=== PATIENT | male | born 1930 | race Caucasian/White ===

== ENCOUNTER 2017-07-08 20:41 | Inpatient (IN) | payer MEDICARE ==
[~2017-07-08] VITALS: Ht 172.7 cm; Wt 73.9 kg
--- NOTE | 2017-07-08 21:20 | Emergency Room Report ---
History of Present Illness General Chief Complaint: Syncope Source: Patient Present Illness HPI This is an 86-year-old male with a history of CAD of the pacemaker. Patient presents with chief complaint of syncope/near syncope. Family called 911 because he felt dizzy and was about to pass out. Patient denies any loss of consciousness. Patient said that this happened to him frequently. Said he been to [facility] multiple times for the same thing. Denies any chest pain. Better when he sitting down. Worse with standing up. No nausea no vomiting. He is a poor historian however. No family available at this moment in time to get history. patient said he takes 11 pills but does know the names. Allergies: Coded Allergies: No Known Allergies (Unverified , 07/08/17) Patient History Past Medical History: see triage record, old chart reviewed, CAD Past Surgical History: other Pertinent Family History: none Social History: Denies: smoking Immunizations: other Reviewed Nursing Documentation: PMH: Agreed, PSxH: Agreed Nursing Documentation-PMH Hx Cardiac Problems: Yes Hx Hypertension: No Hx Pacemaker: Yes Hx Asthma: No Hx Diabetes: No Hx Cancer: No Hx Dialysis: No History Of Psychiatric Problem: No Hx Neurological Problems: No Hx Cerebrovascular Accident: Yes Hx Seizures: No Review of Systems Constitutional: Reports: weakness Eye: Denies: eye pain, blurred vision ENT: Denies: ear pain, nose congestion, throat swelling Respiratory: Denies: cough, shortness of breath Cardiovascular: Denies: chest pain, palpitations Gastrointestinal: Denies: abdominal pain, diarrhea, nausea, vomiting Musculoskeletal: Denies: back pain, joint pain Skin: Denies: rash Neurological: Denies: headache, numbness Endocrine: Denies: increased thirst, increased urine Hematologic/Lymphatic: Denies: easy bruising All Other Systems: negative except mentioned in HPI Physical Exam Vital Signs Date Time Temp Pulse Resp B/P (MAP) Pulse Ox O2 Delivery O2 Flow Rate FiO2 07/08/17 20:44 98.1 78 16 91/53 89 Room Air vitals with hypotension and hypoxia Sp02 EP Interpretation: reviewed, normal General Appearance: Chronically Ill Head: normocephalic, atraumatic Eyes: bilateral eye PERRL, bilateral eye EOMI ENT: hearing grossly normal, normal pharynx Neck: full range of motion, supple, no meningismus Respiratory: chest non-tender, lungs clear, normal breath sounds Cardiovascular #1: regular rate, rhythm, no murmur Gastrointestinal: normal bowel sounds, non tender, no mass, no organomegaly, no bruit, non-distended Musculoskeletal: back normal, gait/station normal, normal range of motion Psychiatric: mood/affect normal Skin: warm/dry Medical Decision Making Diagnostic Impression: Primary Impression: Syncope Qualified Codes: R55 - Syncope and collapse Additional Impressions: Anemia Qualified Codes: D64.9 - Anemia, unspecified ARF (acute renal failure) Qualified Codes: N17.9 - Acute kidney failure, unspecified Hypotension Qualified Codes: I95.9 - Hypotension, unspecified ER Course This patient presents with weakness and hypotension. He has a syncope/near syncope. He said that he has been to [facility] multiple time. Unable to get records from them at this moment. He decreased on with IV fluid. His BNP is elevated a chest x-ray is clear. No evidence of fluid overloaded on clinical exam. Will admit for further workup. No evidence of infection. Lab Results Impression last with elevated bun/creat and low hemoglobin EKG Diagnostic Results Rate: normal Rhythm: NSR ST Segments: other - paced Rhythm Strip Diag. Results Rhythm Strip Time: 21:20 EP Interpretation: yes Rate: 70 Rhythm: NSR, no PVC's, no ectopy Chest X-Ray Diagnostic Results Chest X-Ray Diagnostic Results : Chest X-Ray Ordered: Yes # of Views/Limited/Complete: 1 View Indication: Shortness of Breath EP Interpretation: Yes Interpretation: no consolidation, no effusion, no pneumothorax, other - Cardiomegaly Impression: Other - CM, Electronically Signed by: Allan Darling MD Last Vital Signs Date Time Temp Pulse Resp B/P (MAP) Pulse Ox O2 Delivery O2 Flow Rate FiO2 07/08/17 20:44 98.1 78 16 91/53 89 Room Air Status: improved Disposition: ADMITTED INPATIENT Condition: Serious ALLAN DARLING M.D. Jul 08, 2017 21:20
[2017-07-08] MEDS: LR 1000ml 1,000 ML IV SCH ×3 (21:39→23:30)
[2017-07-08 21:54] LABS: MEAN CORPUSCULAR HEMOGLOBIN 30.4 PG (27.0-31.0); MEAN CORPUSCULAR HGB CONC 30.1 G/DL (32.0-36.0); MEAN CORPUSCULAR VOLUME 101 FL (80-99); MEAN PLATELET VOLUME 6.6 FL (6.5-10.1); PLATELET COUNT 166 K/UL (150-450); RED BLOOD COUNT 2.44 M/UL (4.70-6.10); RED CELL DISTRIBUTION WIDTH 17.6 % (11.6-14.8); WHITE BLOOD COUNT 7.2 K/UL (4.8-10.8)
[2017-07-08 22:02] VITALS: BP 89/51
[2017-07-08 22:07] LABS: ANION GAP 15 mmol/L (5-15); CALCIUM 9.4 MG/DL (8.5-10.1); CARBON DIOXIDE 20 MMOL/L (21-32); CHLORIDE 104 MMOL/L (98-107); POTASSIUM 5.5 MMOL/L (3.5-5.1); SODIUM 138 MMOL/L (136-145)
[2017-07-08 22:21] LABS: ALANINE AMINOTRANSFERASE 29 U/L (12-78); ASPARTATE AMINO TRANSFERASE 24 U/L (15-37); CKMB 1.3 NG/ML (0.0-3.6); TOTAL PROTEIN 7.3 G/DL (6.4-8.2)
[2017-07-08] MEDS ORDERED: TAMSULOSIN HCL0.4 MG ORAL (22:33)
[2017-07-08] MEDS ORDERED: ASPIR 8181 MG ORAL (22:33)
[2017-07-08 22:42] LABS: BAND NEUTROPHILS % (MANUAL) 1 % (0-8); BASOPHILS % (MANUAL) 2 % (0-2); LYMPHOCYTES % (MANUAL) 15 % (20-45); NEUTROPHILS % (MANUAL) 78 % (45-75); TOTAL CELLS COUNTED 100
[2017-07-08 22:43] LABS: ANISOCYTOSIS 2+; EOSINOPHILS % (MANUAL) 0 % (0-3); PLATELET ESTIMATE ADEQUATE; PLATELET MORPHOLOGY NORMAL; POLYCHROMASIA 1+
[2017-07-08 22:44] LABS: MACROCYTES 2+
[2017-07-08 23:55] VITALS: BP 92/53
[2017-07-09] VITALS (9 sets, daily range): BP systolic 79–114; BP diastolic 48–78
[2017-07-09 00:57] LABS: APPEARANCE,URINE CLEAR; KETONES,URINE NEGATIVE (NEGATIVE); LEUKOCYTE ESTERASE ,URINE NEGATIVE (NEGATIVE); NITRITE,URINE NEGATIVE (NEGATIVE); PH,URINE 5 (4.5-8.0); PROTEIN,URINE NEGATIVE (NEGATIVE); UROBILINOGEN,URINE NORMAL MG/DL (0.0-1.0)
[2017-07-09] MEDS ORDERED: Sodium Chloride 500ML 500 ML IV PRN ×4 (02:15→22:30)
[2017-07-09 08:12] LABS: HEMOGLOBIN A1C 6.7 % (4.3-6.0)
[2017-07-09 08:16] LABS: CHOLESTEROL 109 MG/DL (< 200); CHOLESTEROL/HDL RATIO 2.6 (3.3-4.4)
[2017-07-09] MEDS ORDERED: Enoxaparin 30mg Inj SUBQ SCH (09:00)
[2017-07-09] MEDS ORDERED: Aspirin Baby 81mg ORAL SCH (09:00)
[2017-07-09 09:14] LABS: FERRITIN 45 NG/ML (8-388)
[2017-07-09] MEDS ORDERED: Sodium Chloride 500ML 500 ML IV ONE (10:00)
--- NOTE | 2017-07-09 10:00 | Consultation ---
Consult Note Consult Note asked to eval for renal failure This is an 86-year-old male with a history of CAD of the pacemaker. Patient presents with chief complaint of syncope/near syncope. Family called 911 because he felt dizzy and was about to pass out. Patient denies any loss of consciousness. Patient said that this happened to him frequently. Said he been to [facility] multiple times for the same thing. Denies any chest pain. Better when he sitting down. Worse with standing up. No nausea no vomiting. He is a poor historian however. No family available at this moment in time to get history. patient said he takes 11 pills but does know the names. Hx Cardiac Problems: Yes Hx Pacemaker: Yes Hx Cerebrovascular Accident: Yes interviewed CS patient examined data reviewed discussed with diamond sander/Plan Renal failure- Pre renal picture- ? underlying CKD Sever Anemia: GI bleed, ?CKD elevated A1c : DM elevated Troponin: CAD plan: Iron panel stool OB U na hydrate transfuse monitor renal parameters ELANA RHOADES Jul 09, 2017 10:00
[2017-07-09 10:39] LABS: FOLIC ACID 22.3 NG/ML (8.6-58.9); IRON 39 ug/dL (50-175); TOTAL IRON BINDING CAPACITY 328 ug/dL (250-450)
[2017-07-09] MEDS ORDERED: Flu Vaccine Quadrivalent 0.5ml IM ONE (11:00)
--- NOTE | 2017-07-09 12:22 | Diagnostic Imaging Report ---
Indication: Abdominal pain TECHNIQUE: Multiplanar grayscale and color Doppler imaging of the abdomen COMPARISON: None available. FINDINGS: Imaged portions of the pancreatic head are unremarkable in appearance. The body and tail are not well seen. Liver is normal in size and contour. Has homogenous echotexture. No focal hepatic mass lesion is appreciated. There is cholelithiasis without sonographic evidence to suggest acute cholecystitis. Gallbladder wall measures 2.8 mm in diameter. There is no pericholecystic fluid. CBD measures 2.4 mm in diameter. There is no intrahepatic biliary ductal dilatation. Multiple bilateral simple renal cysts are seen. There is a rounded mass in the left kidney that measures up to 2.2 cm in diameter with apparent internal echoes. This is not definitively a cyst. Renal parenchymal thickness and echogenicity within normal limits bilaterally. Spleen not identified. Imaged portions of the abdominal aorta and IVC aren't unremarkable in caliber. There is no ascites. Impression: * Cholelithiasis without evidence of acute cholecystitis. * Well-circumscribed left renal mass measuring up to 2.2 cm in diameter. This contains internal echoes and is not a simple cyst. Hemorrhagic/proteinaceous cyst may be considered however renal cell carcinoma is not entirely excluded. Evaluation with dynamic contrast-enhanced renal mass protocol CT or MRI of the abdomen is recommended.
--- NOTE | 2017-07-09 12:43 | History & Physical ---
History and Physical History & Physicial seen and examined. Dict completed. Paddy Hirsch MD Jul 09, 2017 12:43
--- NOTE | 2017-07-09 12:46 | General Progress Note ---
Assessment/Plan Status: stable Assessment/Plan 1- Acute encephalopathy 2- Anemia 3- RF 4- CAD- s/p cabge 5- [place] arrhythmia, S/P pacemaker Plan: Cardiology Nephrology Neurology are consulted. Subjective ROS Limited/Unobtainable: Yes Allergies: Coded Allergies: No Known Allergies (Unverified , 07/08/17) Objective Last 24 Hour Vital Signs Date Time Temp Pulse Resp B/P (MAP) Pulse Ox O2 Delivery O2 Flow Rate FiO2 07/09/17 04:00 85 20 85/55 Room Air 07/09/17 04:00 78 07/09/17 01:00 70 07/09/17 00:43 98.1 78 20 92/56 99 07/09/17 00:40 98.1 79 12 92/56 100 Nasal Cannula 2.0 07/09/17 00:10 98.1 79 12 92/53 100 Nasal Cannula 2.0 07/08/17 23:55 98.1 79 12 92/53 100 Nasal Cannula 2.0 07/08/17 22:02 98.1 79 17 89/51 99 Nasal Cannula 2.0 07/08/17 20:44 98.1 78 16 91/53 89 Room Air Intake and Output 07/09/17 07/10/17 19:00 07:00 # Voids 1 Laboratory Tests 07/08/17 21:35: White Blood Count 7.2, Red Blood Count 2.44L, Hemoglobin 7.4L, Hematocrit 24.7L , Mean Corpuscular Volume 101H, Mean Corpuscular Hemoglobin 30.4, Mean Corpuscular Hemoglobin Concent 30.1L, Red Cell Distribution Width 17.6H, Platelet Count 166, Mean Platelet Volume 6.6, Neutrophils (%) (Auto) , Lymphocytes (%) (Auto) , Monocytes (%) (Auto) , Eosinophils (%) (Auto) , Basophils (%) (Auto) , Differential Total Cells Counted 100, Neutrophils % ( Manual) 78H, Lymphocytes % (Manual) 15L, Monocytes % (Manual) 4, Eosinophils % ( Manual) 0, Basophils % (Manual) 2, Band Neutrophils 1, Platelet Estimate Adequate, Platelet Morphology Normal, Polychromasia 1+, Anisocytosis 2+, Macrocytosis 2+, Sodium Level 138, Potassium Level 5.5H, Chloride Level 104, Carbon Dioxide Level 20L, Anion Gap 15, Blood Urea Nitrogen 138H, Creatinine 3.0H, Estimat Glomerular Filtration Rate , Glucose Level 126H, Calcium Level 9.4 , Total Bilirubin 0.4, Aspartate Amino Transf (AST/SGOT) 24, Alanine Aminotransferase (ALT/SGPT) 29, Alkaline Phosphatase 112, Total Creatine Kinase 38, Creatine Kinase MB 1.3, Creatine Kinase MB Relative Index 3.4, Troponin I 0.045, Pro-B-Type Natriuretic Peptide 4032H, Total Protein 7.3, Albumin 3.6, Globulin 3.7, Albumin/Globulin Ratio 1.0 07/09/17 00:30: Urine Color Pale yellow, Urine Appearance Clear, Urine pH 5, Urine Specific [place] 1.015, Urine Protein Negative, Urine Glucose (UA) Negative, Urine Ketones Negative, Urine Occult Blood Negative, Urine Nitrite Negative, Urine Bilirubin Negative, Urine Urobilinogen Normal, Urine Leukocyte Esterase Negative 07/09/17 07:00: Troponin I 0.135H, Hemoglobin A1c 6.7H, Iron Level 39L, Total Iron Binding Capacity 328, Percent Iron Saturation 12L, Unsaturated Iron Binding 289, Ferritin 45, Triglycerides Level 79, Cholesterol Level 109, LDL Cholesterol 59, HDL Cholesterol 42, Cholesterol/HDL Ratio 2.6L, Renin [Pending], Aldosterone [ Pending], Vitamin B12 Level 690, Folate 22.3 Height (Feet): 5 Height (Inches): 8.00 Weight (Pounds): 163 General Appearance: no apparent distress EENT: PERRL/EOMI Neck: supple Cardiovascular: normal rate Respiratory/Chest: lungs clear Abdomen: soft Extremities: non-tender Neurologic: wire repairer II-XII grossly normal Paddy Hirsch MD Jul 09, 2017 12:46
[2017-07-09] MEDS: Docusate 100mg cap ORAL SCH ×2 (13:00→17:53)
--- NOTE | 2017-07-09 13:07 | Diagnostic Imaging Report ---
Indication: Syncope Technique: XRAY Chest 1v Comparison: None Findings: Heart is enlarged. Patient is status post median sternotomy. Left-sided pacemaker is noted with lead tips projecting over the expected areas of the right atrium and ventricle. There is mild central pulmonary vascular congestion. There is elevation of the left hemidiaphragm with linear atelectasis/scarring in the left lower lung. There is no definite pneumothorax. No focal consolidation is noted on the right. Degenerative changes noted in the thoracolumbar spine and bilateral shoulders. No acute osseous abnormality seen. Impression: Cardiomegaly with central pulmonary vascular congestion. Ablation of the left hemidiaphragm with linear left basilar atelectasis/scarring.
--- NOTE | 2017-07-09 17:02 | Cardiology Progress Note ---
Assessment/Plan Assessment/Plan The patient is seen and examined, full consult note dictated. Objective Last 24 Hour Vital Signs Date Time Temp Pulse Resp B/P (MAP) Pulse Ox O2 Delivery O2 Flow Rate FiO2 07/09/17 16:11 73 86/53 07/09/17 16:00 97.7 88 20 79/48 98 Room Air 07/09/17 12:00 79 07/09/17 12:00 97.6 76 20 92/51 100 Room Air 07/09/17 08:00 97.1 75 20 107/55 100 Room Air 07/09/17 08:00 73 07/09/17 04:00 85 20 85/55 Room Air 07/09/17 04:00 78 07/09/17 01:00 70 07/09/17 00:43 98.1 78 20 92/56 99 07/09/17 00:40 98.1 79 12 92/56 100 Nasal Cannula 2.0 07/09/17 00:10 98.1 79 12 92/53 100 Nasal Cannula 2.0 07/08/17 23:55 98.1 79 12 92/53 100 Nasal Cannula 2.0 07/08/17 22:02 98.1 79 17 89/51 99 Nasal Cannula 2.0 07/08/17 20:44 98.1 78 16 91/53 89 Room Air Intake and Output 07/09/17 07/10/17 19:00 07:00 Intake Total 1040 ml Output Total 600 ml Balance 440 ml Intake Oral 540 ml IV Total 500 ml Output Urine Total 600 ml # Voids 2 # Bowel Movements 2 Laboratory Tests Test 07/08/17 21:35 07/09/17 00:30 07/09/17 07:00 07/09/17 12:50 White Blood Count 7.2 K/UL (4.8-10.8) Red Blood Count 2.44 M/UL (4.70-6.10) L Hemoglobin 7.4 G/DL (14.2-18.0) L Hematocrit 24.7 % (42.0-52.0) L Mean Corpuscular Volume 101 FL (80-99) H Mean Corpuscular Hemoglobin 30.4 PG (27.0-31.0) Mean Corpuscular Hemoglobin Concent 30.1 G/DL (32.0-36.0) L Red Cell Distribution Width 17.6 % (11.6-14.8) H Platelet Count 166 K/UL (150-450) Mean Platelet Volume 6.6 FL (6.5-10.1) Neutrophils (%) (Auto) % (45.0-75.0) Lymphocytes (%) (Auto) % (20.0-45.0) Monocytes (%) (Auto) % (1.0-10.0) Eosinophils (%) (Auto) % (0.0-3.0) Basophils (%) (Auto) % (0.0-2.0) Differential Total Cells Counted 100 Neutrophils % (Manual) 78 % (45-75) H Lymphocytes % (Manual) 15 % (20-45) L Monocytes % (Manual) 4 % (1-10) Eosinophils % (Manual) 0 % (0-3) Basophils % (Manual) 2 % (0-2) Band Neutrophils 1 % (0-8) Platelet Estimate Adequate Platelet Morphology Normal Polychromasia 1+ Anisocytosis 2+ Macrocytosis 2+ Sodium Level 138 MMOL/L (136-145) Potassium Level 5.5 MMOL/L (3.5-5.1) H Chloride Level 104 MMOL/L (98-107) Carbon Dioxide Level 20 MMOL/L (21-32) L Anion Gap 15 mmol/L (5-15) Blood Urea Nitrogen 138 mg/dL (7-18) H Creatinine 3.0 MG/DL (0.55-1.30) H Estimat Glomerular Filtration Rate mL/min (>60) Glucose Level 126 MG/DL (74-106) H Calcium Level 9.4 MG/DL (8.5-10.1) Total Bilirubin 0.4 MG/DL (0.2-1.0) Aspartate Amino Transf (AST/SGOT) 24 U/L (15-37) Alanine Aminotransferase (ALT/SGPT) 29 U/L (12-78) Alkaline Phosphatase 112 U/L (46-116) Total Creatine Kinase 38 U/L (26-308) Creatine Kinase MB 1.3 NG/ML (0.0-3.6) Creatine Kinase MB Relative Index 3.4 Troponin I 0.045 ng/mL (0.000-0.056) 0.135 ng/mL (0.000-0.056) 0.317 ng/mL (0.000-0.056) Pro-B-Type Natriuretic Peptide 4032 pg/mL (0-125) H Total Protein 7.3 G/DL (6.4-8.2) Albumin 3.6 G/DL (3.4-5.0) Globulin 3.7 g/dL Albumin/Globulin Ratio 1.0 (1.0-2.7) Urine Color Pale yellow Urine Appearance Clear Urine pH 5 (4.5-8.0) Urine Specific [place] 1.015 (1.005-1.035) Urine Protein Negative (NEGATIVE) Urine Glucose (UA) Negative (NEGATIVE) Urine Ketones Negative (NEGATIVE) Urine Occult Blood Negative (NEGATIVE) Urine Nitrite Negative (NEGATIVE) Urine Bilirubin Negative (NEGATIVE) Urine Urobilinogen Normal MG/DL (0.0-1.0) Urine Leukocyte Esterase Negative (NEGATIVE) Hemoglobin A1c 6.7 % (4.3-6.0) H Iron Level 39 ug/dL (50-175) L Total Iron Binding Capacity 328 ug/dL (250-450) Percent Iron Saturation 12 % (15-50) L Unsaturated Iron Binding 289 ug/dL (112-346) Ferritin 45 NG/ML (8-388) Triglycerides Level 79 MG/DL (30-150) Cholesterol Level 109 MG/DL (< 200) LDL Cholesterol 59 mg/dL (<100) HDL Cholesterol 42 MG/DL (40-60) Cholesterol/HDL Ratio 2.6 (3.3-4.4) L Renin Pending Aldosterone Pending Vitamin B12 Level 690 PG/ML (193-986) Folate 22.3 NG/ML (8.6-58.9) LORI JOSEPH Jul 09, 2017 17:02
[2017-07-09] MEDS ORDERED: Tamsulosin 0.4mg cap ORAL SCH (21:00)
--- NOTE | 2017-07-09 21:30 | History and Physical Report ---
DATE OF ADMISSION: 07/08/2017 SOURCE OF INFORMATION: The patient and EMR. HISTORY OF PRESENT ILLNESS: The patient is a pleasant 86-year-old, white male. The patient presented with loss of consciousness. The patient reported that he has been following with his [facility] primary physician for the same reason at least 2 or 3 times within the last 4 weeks. He reported that he does not have any recollection of the incident today. However, he was found on the driveway reportedly by a family member who called 911 and he was transferred here. PAST MEDICAL HISTORY: Coronary artery disease, status post CABG; cardiac arrhythmia, status post pacemaker placement; and CVA. PAST SURGICAL HISTORY: CABG. CURRENT HOSPITAL MEDICATIONS: Including but not limited to Flomax 0.4 mg daily, Pravachol 20 mg daily, Lovenox 30 mg daily, and aspirin 81 mg. ALLERGIES: NKDA. SOCIAL HISTORY: The patient denies history of illicit drug abuse, smoking, or alcohol abuse. FAMILY HISTORY: Reviewed and noncontributory. PHYSICAL EXAMINATION: VITAL SIGNS: Blood pressure 90/pulse, pulse rate 70-80, temperature 98.1, and pulse oximetry 90% on 2 liters of oxygen. HEAD AND NECK: Atraumatic and normocephalic. CHEST: Clear to auscultation. HEART: S1 and S2. Regular rate. Paced rhythm. NEUROLOGIC: The patient is awake, alert, and oriented x3. MUSCULOSKELETAL: Atrophied musculature. No gross focal motor deficit. PSYCHIATRIC: Mood and affect are appropriate and normal. LABORATORY AND DIAGNOSTIC DATA: Labs dated 07/08/2017 shows WBC 7.2, hemoglobin 7.4, and platelets 166. Sodium of 138, potassium of 5.5, BUN 138, and creatinine 3. Abdominal ultrasound shows cholelithiasis with no evidence of cholecystitis. Left-sided renal mass. ASSESSMENT AND PLAN: 1. Acute encephalopathy. 2. Anemia, age indeterminate. 3. Renal failure, age indeterminate. 4. Internal carotid artery stenosis. 5. Hyperkalemia. 6. Gastrointestinal and deep vein thrombosis prophylaxes. PLAN OF CARE: At this time, we will type and cross [address] units of blood. Renal Dr. Arias, Neurology Dr. Yanes and Cardiology Dr. Johnson have been consulted. We will consult vascular surgeon Dr. Hanks. We will continue with the home medications and statins. We would discontinue the Lovenox. We will continue with the SCDs. Paddy Hirsch M.D. DR: GILDA JOB#: [id number] CC:
[2017-07-10] VITALS: BP 112/51
--- NOTE | 2017-07-10 | Consultation ---
DATE OF CONSULTATION: 07/09/2017 CARDIOLOGY CONSULTATION CONSULTING PHYSICIAN: Kalia Johnson M.D. REFERRING PHYSICIAN: Paddy Hirshc M.D. REASON FOR CONSULTATION: Management of syncope. HISTORY OF PRESENT ILLNESS: The patient is a very unfortunate 85-year-old gentleman, who presents to the hospital after he had a dizzy spell with a blackout and almost loss of consciousness. He states that he did not pass out. He has had similar episodes in the past for which he was admitted to [facility]. Unfortunately, there are no records available from that facility. In the emergency department, a CT of head was not done. However, a 12-lead electrocardiogram was significant for presence of atrial fibrillation as well as ventricular paced rhythm. The patient's cardiac history includes history of coronary artery disease and dual-chamber pacemaker implantation. The patient was also found not to be on oral anticoagulation therapy despite the fact that he is at high risk for thromboembolic events including a history of cerebrovascular accident in the past. PAST MEDICAL HISTORY: 1. History of coronary artery disease. 2. History of dual-chamber pacemaker implantation. 3. History of cerebrovascular accident. 4. History of presyncope/syncope, multiple hospitalizations to [facility]. MEDICATIONS: List of medication including aspirin 81 mg p.o. daily and tamsulosin 0.4 mg p.o. at bedtime. SOCIAL HISTORY: Denies any tobacco, alcohol, or illicit drug use. FAMILY HISTORY: No premature coronary artery disease in first-degree relatives. REVIEW OF SYSTEMS: HEENT: Denies any headache, diplopia, or blurred vision. CONSTITUTIONAL: Denies any fever, chills, night sweats, or weight loss. CARDIOVASCULAR: Denies any chest pain, shortness of breath, PND, orthopnea, or pre-syncopal symptoms as mentioned above. There is no loss of consciousness. LUNGS: Denies any cough, hemoptysis, or wheezing. GASTROINTESTINAL: Denies any nausea, vomiting, diarrhea, constipation, abdominal pain, or GI bleed. GENITOURINARY: Denies any hematuria, dysuria, or incontinence. NEUROLOGIC: Denies any signs of lateralization, dysphagia, or slurred speech. PHYSICAL EXAMINATION: VITAL SIGNS: Blood pressure was 91/53, respirations 16, pulse 78, temperature 98.1 degrees Fahrenheit, and O2 saturation 99% on room air. GENERAL: The patient is a very unfortunate chronically looking 86-year-old gentleman, in no apparent respiratory distress. HEENT: Atraumatic and normocephalic. Anicteric. Pupils are equal, round, and reactive to light and accommodation. Extraocular muscles intact. NECK: JVP is less than 5 cm. No carotid bruit. Carotid upstrokes 2+ bilaterally. CARDIOVASCULAR: Normal S1 and S2. Regular rate and rhythm. A 2/6 mid systolic murmur at left sternal border. PMI is at fourth intercostal space at the midclavicular line. LUNGS: Clear to auscultation bilaterally. ABDOMEN: Soft, nontender, and nondistended. No hepatosplenomegaly. Positive bowel sounds. EXTREMITIES: No evidence of edema, clubbing, or cyanosis. LABORATORY AND DIAGNOSTIC FINDINGS: Sodium 138, potassium 5.5, chloride 104, bicarbonate 20, BUN 138, creatinine 3.0, glucose 126, and calcium is 9.4. ProBNP was 4032. Troponin I was 0.045, 0.135 and 0.317. Chest x-ray showed presence of a dual-chamber pacemaker, cardiomegaly, in particular right atrial enlargement and no pulmonary edema. A 12-lead electrocardiogram, atrial fibrillation with ventricular paced rhythm. ASSESSMENT AND PLAN: This is a very unfortunate 86-year-old gentleman, seen in Cardiology consultation at the request of Dr. Hirsch. 1. Presyncope. This could be due to vasovagal or hypovolemia. The patient's systolic blood pressure was below 100 mmHg. Hydration is the mainstay of therapy. Given the patient's atrial fibrillation, one also has to think about transient ischemic attacks. I would recommend CT of head to rule out acute infarct. Neurology consultation is required. I would like to obtain orthostatic vitals and urine sodium to assess volume status. A 2D echocardiography will be done to assess left ventricular systolic and diastolic function. In the meantime, we will be awaiting the records from [facility]. 2. History of coronary artery disease, the details of which is unknown. 3. History of cerebrovascular accident in the past. 4. Atrial fibrillation. The patient is not on any anticoagulation therapy, aspirin does not work for prevention of thromboembolic events. We will switch the patient to Eliquis. There is no contraindication for use of anticoagulation agents at this time. Eliquis 2.5 mg twice daily will provide good coverage. I would like to thank, Dr. Hirsch, for the courtesy of this consultation. Kalia Johnson M.D. DR: MIKE JOB#: [id number] CC:
[2017-07-10 04:00] VITALS: BP 110/68
[2017-07-10 06:10] LABS: MEAN CORPUSCULAR HEMOGLOBIN 32.1 PG (27.0-31.0); MEAN CORPUSCULAR HGB CONC 32.3 G/DL (32.0-36.0); MEAN CORPUSCULAR VOLUME 100 FL (80-99); MEAN PLATELET VOLUME 6.2 FL (6.5-10.1); PLATELET COUNT 165 K/UL (150-450); RED BLOOD COUNT 2.26 M/UL (4.70-6.10); RED CELL DISTRIBUTION WIDTH 19.1 % (11.6-14.8); WHITE BLOOD COUNT 4.8 K/UL (4.8-10.8)
[2017-07-10 06:29] LABS: ALANINE AMINOTRANSFERASE 29 U/L (12-78); ANION GAP 9 mmol/L (5-15); ASPARTATE AMINO TRANSFERASE 19 U/L (15-37); CALCIUM 8.8 MG/DL (8.5-10.1); CARBON DIOXIDE 21 MMOL/L (21-32); CHLORIDE 111 MMOL/L (98-107); POTASSIUM 4.8 MMOL/L (3.5-5.1); SODIUM 141 MMOL/L (136-145); TOTAL PROTEIN 6.3 G/DL (6.4-8.2)
[2017-07-10] MEDS ORDERED: Sodium Chloride 500ML 1,000 ML IV PRN (06:30)
[2017-07-10 06:33] LABS: MAGNESIUM 2.1 MG/DL (1.8-2.4); PHOSPHORUS 3.7 MG/DL (2.5-4.9); URIC ACID 6.5 MG/DL (2.6-7.2)
[2017-07-10 06:35] LABS: CRP QUANT < 0.4 mg/dL (0.00-0.90)
[2017-07-10 08:00] VITALS: BP 114/72
--- NOTE | 2017-07-10 08:10 | General Progress Note ---
Assessment/Plan Status: stable Assessment/Plan 1. Acute encephalopathy. 2. Acute/chronic Anemia, age indeterminate. 3. Afib- rate controlled 4. NSTEMI 3. Renal failure, age indeterminate. 4. Internal carotid artery stenosis. 5. Hyperkalemia. 6. Gastrointestinal and deep vein thrombosis prophylaxes. Plan: Cardiology Nephrology notes are reviewed consulted. Vascular surgeon , Hem/onch consulted Minimal improvement in Hgb level , post transfusion Subjective ROS Limited/Unobtainable: No Constitutional: Reports: no symptoms HEENT: Reports: no symptoms Cardiovascular: Reports: no symptoms Respiratory: Reports: no symptoms Allergies: Coded Allergies: No Known Allergies (Unverified , 07/08/17) Objective Last 24 Hour Vital Signs Date Time Temp Pulse Resp B/P (MAP) Pulse Ox O2 Delivery O2 Flow Rate FiO2 07/10/17 04:00 78 07/10/17 04:00 98.1 74 18 110/68 99 Room Air 07/10/17 00:00 74 07/10/17 00:00 97.7 80 20 112/51 99 Room Air 07/09/17 22:00 98.1 71 18 114/78 98 Room Air 71 71 07/09/17 20:13 97.9 71 23 110/63 98 Room Air 07/09/17 20:00 79 07/09/17 16:11 73 86/53 07/09/17 16:00 74 07/09/17 16:00 97.7 88 20 79/48 98 Room Air 07/09/17 12:00 79 07/09/17 12:00 97.6 76 20 92/51 100 Room Air Laboratory Tests 07/09/17 12:50: Troponin I 0.317H 07/09/17 20:55: Troponin I 0.482H 07/10/17 05:45: White Blood Count 4.8, Red Blood Count 2.26L, Hemoglobin 7.2L, Hematocrit 22.5L , Mean Corpuscular Volume 100H, Mean Corpuscular Hemoglobin 32.1H, Mean Corpuscular Hemoglobin Concent 32.3, Red Cell Distribution Width 19.1H, Platelet Count 165, Mean Platelet Volume 6.2L, Neutrophils (%) (Auto) , Lymphocytes (%) (Auto) , Monocytes (%) (Auto) , Eosinophils (%) (Auto) , Basophils (%) (Auto) , Sodium Level 141, Potassium Level 4.8, Chloride Level 111H, Carbon Dioxide Level 21, Anion Gap 9, Blood Urea Nitrogen 101H, Creatinine 2.0H, Estimat Glomerular Filtration Rate , Glucose Level 120H, Uric Acid 6.5, Calcium Level 8.8, Phosphorus Level 3.7, Magnesium Level 2.1, Total Bilirubin 0.8, Gamma Glutamyl Transpeptidase 260H, Aspartate Amino Transf (AST/ SGOT) 19, Alanine Aminotransferase (ALT/SGPT) 29, Alkaline Phosphatase 99, Total Creatine Kinase 33, C-Reactive Protein, Quantitative < 0.4, Pro-B-Type Natriuretic Peptide 5077H, Total Protein 6.3L, Albumin 3.1L, Globulin 3.2, Albumin/Globulin Ratio 1.0 Height (Feet): 5 Height (Inches): 8.00 Weight (Pounds): 163 General Appearance: no apparent distress EENT: PERRL/EOMI Neck: supple Cardiovascular: arrhythmia Respiratory/Chest: lungs clear Abdomen: soft Extremities: other - atrophied musculature Neurologic: technical solutions engineer II-XII grossly normal Paddy Hirsch MD Jul 10, 2017 08:10
[2017-07-10] MEDS: Aspirin Baby 81mg ORAL SCH (09:32)
[2017-07-10] MEDS: Eliquis 2.5mg tablet ORAL SCH ×2 (09:32→17:14)
[2017-07-10] MEDS: Docusate 100mg cap ORAL SCH ×3 (09:33→17:14)
[2017-07-10 09:58] LABS: OTHERS PATHOLOGIST COMMENT
--- NOTE | 2017-07-10 11:18 | Diagnostic Imaging Report ---
Indication: Syncopal Technique: Contiguous 5 mm thick transaxial imaging of the head obtained in a Siemens Sensation [address] scanner. Soft tissue and bone windows generated. Automatic Exposure Control was utilized. Total Dose length Product (DLP): 1576.[address] Dose Index Volume (CTDIvol): 70.38 mGy Comparison: none Findings: There is moderate prominence of the ventricles, basal cisterns, and cerebral sulci consistent with atrophy. Moderate, nonspecific, white matter hypoattenuation is noted throughout the brain consistent with chronic small vessel disease. There is no midline shift, edema, acute hemorrhage, mass effect, or abnormal extra-axial fluid collections. Bones and extra osseous soft tissues are unremarkable. Impression: No acute intracranial bleed, mass effect or edema. Moderate atrophy of the brain. Evidence of chronic small vessel disease involving white matter tracts. [facility] has communicated the preliminary results to the Emergency Department. Their findings are largely concordant with this report. The CT scanner at [facility] is accredited by the [employer] and the scans are performed using dose optimization techniques as appropriate to a performed exam including Automatic Exposure control.
--- NOTE | 2017-07-10 11:26 | GI Initial Consult Note ---
Natasha Darling N.PDona 07/10/17 1126: History of Present Illness General Date patient seen: Jul 10, 2017 Time patient seen: 11:19 Reason for Hospitalization: Syncope Referring physician: BALJIT RIDER Reason for Consultation: ANEMIA Present Illness HPI This is an 86-year-old male with a history of CAD of the pacemaker. Patient presents with chief complaint of syncope/near syncope. Family called 911 because he felt dizzy and was about to pass out. Patient denies any loss of consciousness. Patient said that this happened to him frequently. Said he been to [facility] multiple times for the same thing. Denies any chest pain. Better when he sitting down. Worse with standing up. No nausea no vomiting. He is a poor historian however. No family available at this moment in time to get history. patient said he takes 11 pills but does know the names. GI consulted for symptomatic anemia r/o GI bleed. HPI as noted above. Pt seen on floor, awake A&Ox4 NAD with no active s/sx of N/V/D currently receiving blood transfusion. Has complaint of diarrhea, poor PO intake x 4 days. Patient presents today with low Hgb requiring transfusion and iron deficiency. Abdominal U/S reviewed shows possible renal mass. Per patient, he's had history of EGD/colonoscopy over 5 years ago but unable to recall exact date or results. Home Meds Reported Medications Aspirin* (ASPIR 81*) 81 Mg Tablet.dr, 81 MG ORAL DAILY, TAB 07/08/17 Tamsulosin Hcl (TAMSULOSIN HCL*) 0.4 Mg Cap.er.24h, 0.4 MG ORAL BEDTIME, CAP 07/08/17 Med list reviewed/reconciled: Yes Allergies: Coded Allergies: No Known Allergies (Unverified , 07/08/17) Patient History PMH Narrative Past Medical History: see triage record, old chart reviewed, CAD Past Surgical History: other Pertinent Family History: none Social History: Denies: smoking Immunizations: other Reviewed Nursing Documentation: PMH: Agreed, PSxH: Agreed Nursing Documentation-PMH Hx Cardiac Problems: Yes Hx Hypertension: No Hx Pacemaker: Yes Hx Asthma: No Hx Diabetes: No Hx Cancer: No Hx Dialysis: No History Of Psychiatric Problem: No Hx Neurological Problems: No Hx Cerebrovascular Accident: Yes Hx Seizures: No Social History: Denies: smoking, alcohol use, drug use, other Review of Systems All Other Systems: negative except mentioned in HPI Physical Exam Vital Signs Date Time Temp Pulse Resp B/P (MAP) Pulse Ox O2 Delivery O2 Flow Rate FiO2 07/08/17 20:44 98.1 78 16 91/53 89 Room Air 07/08/17 22:02 2.0 Sp02 EP Interpretation: reviewed, normal Labs Laboratory Tests Test 07/09/17 12:50 07/09/17 20:55 07/10/17 05:45 Troponin I 0.317 ng/mL (0.000-0.056) 0.482 ng/mL (0.000-0.056) White Blood Count 4.8 K/UL (4.8-10.8) Red Blood Count 2.26 M/UL (4.70-6.10) L Hemoglobin 7.2 G/DL (14.2-18.0) L Hematocrit 22.5 % (42.0-52.0) L Mean Corpuscular Volume 100 FL (80-99) H Mean Corpuscular Hemoglobin 32.1 PG (27.0-31.0) H Mean Corpuscular Hemoglobin Concent 32.3 G/DL (32.0-36.0) Red Cell Distribution Width 19.1 % (11.6-14.8) H Platelet Count 165 K/UL (150-450) Mean Platelet Volume 6.2 FL (6.5-10.1) L Neutrophils (%) (Auto) % (45.0-75.0) Lymphocytes (%) (Auto) % (20.0-45.0) Monocytes (%) (Auto) % (1.0-10.0) Eosinophils (%) (Auto) % (0.0-3.0) Basophils (%) (Auto) % (0.0-2.0) Sodium Level 141 MMOL/L (136-145) Potassium Level 4.8 MMOL/L (3.5-5.1) Chloride Level 111 MMOL/L (98-107) H Carbon Dioxide Level 21 MMOL/L (21-32) Anion Gap 9 mmol/L (5-15) Blood Urea Nitrogen 101 mg/dL (7-18) H Creatinine 2.0 MG/DL (0.55-1.30) H Estimat Glomerular Filtration Rate mL/min (>60) Glucose Level 120 MG/DL (74-106) H Uric Acid 6.5 MG/DL (2.6-7.2) Calcium Level 8.8 MG/DL (8.5-10.1) Phosphorus Level 3.7 MG/DL (2.5-4.9) Magnesium Level 2.1 MG/DL (1.8-2.4) Total Bilirubin 0.8 MG/DL (0.2-1.0) Gamma Glutamyl Transpeptidase 260 U/L (5-85) H Aspartate Amino Transf (AST/SGOT) 19 U/L (15-37) Alanine Aminotransferase (ALT/SGPT) 29 U/L (12-78) Alkaline Phosphatase 99 U/L (46-116) Total Creatine Kinase 33 U/L (26-308) C-Reactive Protein, Quantitative < 0.4 mg/dL (0.00-0.90) Pro-B-Type Natriuretic Peptide 5077 pg/mL (0-125) H Total Protein 6.3 G/DL (6.4-8.2) L Albumin 3.1 G/DL (3.4-5.0) L Globulin 3.2 g/dL Albumin/Globulin Ratio 1.0 (1.0-2.7) General Appearance: well appearing, no apparent distress, alert Head: normocephalic EENT: PERRL/EOMI, normal ENT inspection Neck: supple Respiratory: normal breath sounds, no respiratory distress Cardiovascular: normal rate Gastrointestinal: normal inspection, non tender, soft, normal bowel sounds, non -distended Rectal: deferred Genitourinary: deferred Musculoskeletal: normal inspection, back normal Neurologic: normal inspection, alert, responsive Psychiatric: normal inspection, judgement/insight normal, memory normal Skin: normal inspection, normal color, no rash, warm/dry, palpation normal, well hydrated Lymphatic: normal inspection, no adenopathy Current Medications Current Medications Medications (Trade) Dose Ordered Sig/Ho Route PRN Reason Start Time Stop Time Status Last Admin Dose Admin Acetaminophen (Tylenol) 650 mg Q4H PRN ORAL Mild Pain/Temp > 100.5 07/10/17 02:15 08/08/17 02:14 Apixaban (Eliquis) 2.5 mg BID ORAL 07/10/17 09:00 08/09/17 08:59 07/10/17 09:32 Aspirin (ASA) 81 mg DAILY ORAL 07/10/17 09:00 08/08/17 08:59 07/10/17 09:32 Docusate Sodium (Colace) 100 mg THREE TIMES A DAY ORAL 07/10/17 09:00 08/08/17 12:59 07/10/17 09:33 Pantoprazole (Protonix) 40 mg BID ORAL 07/10/17 09:00 08/08/17 08:59 07/10/17 09:33 Pravastatin Sodium (Pravachol) 20 mg BEDTIME ORAL 07/10/17 21:00 08/08/17 20:59 Sodium Chloride 1,000 ml @ 999 mls/hr Q1H1M PRN IV For hypotension 07/10/17 06:30 08/08/17 02:14 Tamsulosin HCl (Flomax) 0.4 mg BEDTIME ORAL 07/10/17 21:00 08/08/17 20:59 GI: Plan Problems: (1) Anemia (2) Syncope (3) Hypotension Plan defer GI procedures, patient will require cardiac clearance given elevated troponin. - patient is also on eliquis which must be dc 48-72 hours prior to any GI procedures. fu CT AP anemia work up iron deficiency >> venofer OB stool r/o GI bleed monitor H&H, prn transfusions bowel regime ppi BID adv diet fu labs Discussed with Dr. Morrissey. Thank you for this patient referral, we will follow. DEN MORRISSEY 07/11/17 0832: History of Present Illness General Reason for Hospitalization: Syncope Present Illness Home Meds Reported Medications Aspirin* (ASPIR 81*) 81 Mg Tablet.dr, 81 MG ORAL DAILY, TAB 07/08/17 Tamsulosin Hcl (TAMSULOSIN HCL*) 0.4 Mg Cap.er.24h, 0.4 MG ORAL BEDTIME, CAP 07/08/17 Allergies: Coded Allergies: No Known Allergies (Unverified , 07/08/17) GI: Plan Plan The patient was seen and examined at bedside and all new and available data was reviewed in the patients chart. I agree with the above findings, impression and plan. (Patient seen earlier today. Signature stamp does not reflect patient encounter time.). - MD Lisset Silva,[facility] N.Abdi Jul 10, 2017 11:26 DEN MORRISSEY Jul 11, 2017 08:32
[2017-07-10 12:00] VITALS: BP 113/66
[2017-07-10 13:20] LABS: EOSINOPHILS % (AUTO) 0.3 % (0.0-3.0); LYMPHOCYTES % (AUTO) 33.1 % (20.0-45.0); MEAN CORPUSCULAR HEMOGLOBIN 30.5 PG (27.0-31.0); MEAN CORPUSCULAR VOLUME 99 FL (80-99); MEAN PLATELET VOLUME 6.6 FL (6.5-10.1); MONOCYTES % (AUTO) 12.9 % (1.0-10.0); NEUTROPHILS % (AUTO) 52.7 % (45.0-75.0); PLATELET COUNT 164 K/UL (150-450); RED BLOOD COUNT 2.78 M/UL (4.70-6.10); RED CELL DISTRIBUTION WIDTH 18.8 % (11.6-14.8); WHITE BLOOD COUNT 5.2 K/UL (4.8-10.8)
--- NOTE | 2017-07-10 13:59 | Nephrology Progress Note ---
Assessment/Plan Problem List: (1) ARF (acute renal failure) (2) Anemia (3) Hypotension Assessment Renal failure- Pre renal picture- ? underlying CKD Cr lower 2 Sever Anemia: GI bleed, ?CKD transfused elevated A1c : DM elevated Troponin: CAD Plan plan: transfused Iron panel show low iron stool OB U na hydrate monitor renal parameters Subjective ROS Limited/Unobtainable: No Constitutional: Reports: malaise Objective Objective Last 24 Hour Vital Signs Date Time Temp Pulse Resp B/P (MAP) Pulse Ox O2 Delivery O2 Flow Rate FiO2 07/10/17 12:00 97.7 74 18 113/66 99 Room Air 07/10/17 12:00 76 07/10/17 08:00 97.8 76 18 114/72 99 Room Air 07/10/17 08:00 78 07/10/17 04:00 78 07/10/17 04:00 98.1 74 18 110/68 99 Room Air 07/10/17 00:00 74 07/10/17 00:00 97.7 80 20 112/51 99 Room Air 07/09/17 22:00 98.1 71 18 114/78 98 Room Air 71 71 07/09/17 20:13 97.9 71 23 110/63 98 Room Air 07/09/17 20:00 79 07/09/17 16:11 73 86/53 07/09/17 16:00 74 07/09/17 16:00 97.7 88 20 79/48 98 Room Air Laboratory Tests 07/09/17 20:55: Troponin I 0.482H 07/10/17 05:45: White Blood Count 4.8, Red Blood Count 2.26L, Hemoglobin 7.2L, Hematocrit 22.5L , Mean Corpuscular Volume 100H, Mean Corpuscular Hemoglobin 32.1H, Mean Corpuscular Hemoglobin Concent 32.3, Red Cell Distribution Width 19.1H, Platelet Count 165, Mean Platelet Volume 6.2L, Neutrophils (%) (Auto) , Lymphocytes (%) (Auto) , Monocytes (%) (Auto) , Eosinophils (%) (Auto) , Basophils (%) (Auto) , Sodium Level 141, Potassium Level 4.8, Chloride Level 111H, Carbon Dioxide Level 21, Anion Gap 9, Blood Urea Nitrogen 101H, Creatinine 2.0H, Estimat Glomerular Filtration Rate , Glucose Level 120H, Uric Acid 6.5, Calcium Level 8.8, Phosphorus Level 3.7, Magnesium Level 2.1, Total Bilirubin 0.8, Gamma Glutamyl Transpeptidase 260H, Aspartate Amino Transf (AST/ SGOT) 19, Alanine Aminotransferase (ALT/SGPT) 29, Alkaline Phosphatase 99, Total Creatine Kinase 33, C-Reactive Protein, Quantitative < 0.4, Pro-B-Type Natriuretic Peptide 5077H, Total Protein 6.3L, Albumin 3.1L, Globulin 3.2, Albumin/Globulin Ratio 1.0 07/10/17 12:40: White Blood Count 5.2, Red Blood Count 2.78L, Hemoglobin 8.5L, Hematocrit 27.4L , Mean Corpuscular Volume 99, Mean Corpuscular Hemoglobin 30.5, Mean Corpuscular Hemoglobin Concent 31.0L, Red Cell Distribution Width 18.8H, Platelet Count 164, Mean Platelet Volume 6.6, Neutrophils (%) (Auto) 52.7, Lymphocytes (%) (Auto) 33.1, Monocytes (%) (Auto) 12.9H, Eosinophils (%) (Auto) 0.3, Basophils (%) (Auto) 1.0 Height (Feet): 5 Height (Inches): 8.00 Weight (Pounds): 163 General Appearance: no apparent distress Cardiovascular: normal rate Respiratory/Chest: lungs clear Abdomen: soft ELANA RHOADES Jul 10, 2017 13:59
[2017-07-10 16:00] VITALS: BP 117/70
--- NOTE | 2017-07-10 19:32 | Cardiology Progress Note ---
Assessment/Plan Assessment/Plan 1. Presyncope, likely vasovagal or hypovolemia, although cardiac arrhythmia should be considered in view of cardiomyopathy, head CT was negative. Urine sodium at 56. 2. Chronic systolic and diastolic CHF, LVEF at 30%, well compensated partly due to underlying atrial fibrillation. 3. History of cerebrovascular accident in the past. 4. Atrial fibrillation on Eliquis now although history of GI bleed in the past is reported. 5. s/p Dual chamber pacemaker Subjective Cardiovascular: Reports: no symptoms Respiratory: Reports: no symptoms Gastrointestinal/Abdominal: Reports: no symptoms Genitourinary: Reports: no symptoms Subjective Sinus rhythm at 75. Objective Last 24 Hour Vital Signs Date Time Temp Pulse Resp B/P (MAP) Pulse Ox O2 Delivery O2 Flow Rate FiO2 07/10/17 16:00 97.2 69 18 117/70 99 Room Air 07/10/17 16:00 75 07/10/17 12:00 97.7 74 18 113/66 99 Room Air 07/10/17 12:00 76 07/10/17 08:00 97.8 76 18 114/72 99 Room Air 07/10/17 08:00 78 07/10/17 04:00 78 07/10/17 04:00 98.1 74 18 110/68 99 Room Air 07/10/17 00:00 74 07/10/17 00:00 97.7 80 20 112/51 99 Room Air 07/09/17 22:00 98.1 71 18 114/78 98 Room Air 71 71 07/09/17 20:13 97.9 71 23 110/63 98 Room Air 07/09/17 20:00 79 Intake and Output 07/10/17 07/11/17 19:00 07:00 Output Total 300 ml Balance -300 ml Output Urine Total 300 ml Laboratory Tests Test 07/09/17 20:55 07/10/17 05:45 07/10/17 12:40 Troponin I 0.482 ng/mL (0.000-0.056) White Blood Count 4.8 K/UL (4.8-10.8) 5.2 K/UL (4.8-10.8) Red Blood Count 2.26 M/UL (4.70-6.10) L 2.78 M/UL (4.70-6.10) L Hemoglobin 7.2 G/DL (14.2-18.0) L 8.5 G/DL (14.2-18.0) L Hematocrit 22.5 % (42.0-52.0) L 27.4 % (42.0-52.0) L Mean Corpuscular Volume 100 FL (80-99) H 99 FL (80-99) Mean Corpuscular Hemoglobin 32.1 PG (27.0-31.0) H 30.5 PG (27.0-31.0) Mean Corpuscular Hemoglobin Concent 32.3 G/DL (32.0-36.0) 31.0 G/DL (32.0-36.0) L Red Cell Distribution Width 19.1 % (11.6-14.8) H 18.8 % (11.6-14.8) H Platelet Count 165 K/UL (150-450) 164 K/UL (150-450) Mean Platelet Volume 6.2 FL (6.5-10.1) L 6.6 FL (6.5-10.1) Neutrophils (%) (Auto) % (45.0-75.0) 52.7 % (45.0-75.0) Lymphocytes (%) (Auto) % (20.0-45.0) 33.1 % (20.0-45.0) Monocytes (%) (Auto) % (1.0-10.0) 12.9 % (1.0-10.0) H Eosinophils (%) (Auto) % (0.0-3.0) 0.3 % (0.0-3.0) Basophils (%) (Auto) % (0.0-2.0) 1.0 % (0.0-2.0) Sodium Level 141 MMOL/L (136-145) Potassium Level 4.8 MMOL/L (3.5-5.1) Chloride Level 111 MMOL/L (98-107) H Carbon Dioxide Level 21 MMOL/L (21-32) Anion Gap 9 mmol/L (5-15) Blood Urea Nitrogen 101 mg/dL (7-18) H Creatinine 2.0 MG/DL (0.55-1.30) H Estimat Glomerular Filtration Rate mL/min (>60) Glucose Level 120 MG/DL (74-106) H Uric Acid 6.5 MG/DL (2.6-7.2) Calcium Level 8.8 MG/DL (8.5-10.1) Phosphorus Level 3.7 MG/DL (2.5-4.9) Magnesium Level 2.1 MG/DL (1.8-2.4) Total Bilirubin 0.8 MG/DL (0.2-1.0) Gamma Glutamyl Transpeptidase 260 U/L (5-85) H Aspartate Amino Transf (AST/SGOT) 19 U/L (15-37) Alanine Aminotransferase (ALT/SGPT) 29 U/L (12-78) Alkaline Phosphatase 99 U/L (46-116) Total Creatine Kinase 33 U/L (26-308) C-Reactive Protein, Quantitative < 0.4 mg/dL (0.00-0.90) Pro-B-Type Natriuretic Peptide 5077 pg/mL (0-125) H Total Protein 6.3 G/DL (6.4-8.2) L Albumin 3.1 G/DL (3.4-5.0) L Globulin 3.2 g/dL Albumin/Globulin Ratio 1.0 (1.0-2.7) Objective GENERAL: The patient is a very unfortunate chronically looking 86-year-old gentleman, in no apparent respiratory distress. HEENT: Atraumatic and normocephalic. Anicteric. Pupils are equal, round, and reactive to light and accommodation. Extraocular muscles intact. NECK: JVP is less than 5 cm. No carotid bruit. Carotid upstrokes 2+ bilaterally. CARDIOVASCULAR: Normal S1 and S2. Regular rate and rhythm. A 2/6 mid systolic murmur at left sternal border. PMI is at fourth intercostal space at the midclavicular line. LUNGS: Clear to auscultation bilaterally. ABDOMEN: Soft, nontender, and nondistended. No hepatosplenomegaly. Positive bowel sounds. EXTREMITIES: No evidence of edema, clubbing, or cyanosis. LORI JOSEPH Jul 10, 2017 19:32
[2017-07-10 20:00] VITALS: BP 119/64
[2017-07-10] MEDS ORDERED: Tamsulosin 0.4mg cap ORAL SCH (21:00)
[2017-07-11] VITALS: BP 125/83
[2017-07-11 04:00] VITALS: BP 133/81
[2017-07-11 05:18] LABS: BASOPHILS % (AUTO) 0.5 % (0.0-2.0); EOSINOPHILS % (AUTO) 0.4 % (0.0-3.0); LYMPHOCYTES % (AUTO) 29.8 % (20.0-45.0); MEAN CORPUSCULAR HEMOGLOBIN 31.2 PG (27.0-31.0); MEAN CORPUSCULAR HGB CONC 31.5 G/DL (32.0-36.0); MEAN CORPUSCULAR VOLUME 99 FL (80-99); MEAN PLATELET VOLUME 5.8 FL (6.5-10.1); MONOCYTES % (AUTO) 14.3 % (1.0-10.0); PLATELET COUNT 157 K/UL (150-450); RED BLOOD COUNT 2.62 M/UL (4.70-6.10); RED CELL DISTRIBUTION WIDTH 18.8 % (11.6-14.8); WHITE BLOOD COUNT 4.9 K/UL (4.8-10.8)
[2017-07-11 05:48] LABS: ALANINE AMINOTRANSFERASE 30 U/L (12-78); ALBUMIN/GLOBULIN RATIO 0.9 (1.0-2.7); ANION GAP 8 mmol/L (5-15); ASPARTATE AMINO TRANSFERASE 20 U/L (15-37); CALCIUM 8.7 MG/DL (8.5-10.1); CARBON DIOXIDE 21 MMOL/L (21-32); CHLORIDE 113 MMOL/L (98-107); CREATININE 1.7 MG/DL (0.55-1.30); POTASSIUM 4.8 MMOL/L (3.5-5.1); SODIUM 142 MMOL/L (136-145); TOTAL PROTEIN 6.4 G/DL (6.4-8.2)
[2017-07-11 06:42] LABS: CRP QUANT < 0.4 mg/dL (0.00-0.90)
--- NOTE | 2017-07-11 07:58 | General Progress Note ---
Assessment/Plan Status: stable Assessment/Plan 1. Acute encephalopathy. 2. Acute/chronic Anemia, age indeterminate. 3. Afib- rate controlled 4. NSTEMI 3. Renal failure, age indeterminate. 4. Internal carotid artery stenosis- Moderate: deferred to outpatient 5. Hyperkalemia. 6. Gastrointestinal and deep vein thrombosis prophylaxes. Plan: Cardiology Nephrology notes are reviewed consulted. on IV iron source of blood loss? Hem onch is consulted Subjective Allergies: Coded Allergies: No Known Allergies (Unverified , 07/08/17) Objective Last 24 Hour Vital Signs Date Time Temp Pulse Resp B/P (MAP) Pulse Ox O2 Delivery O2 Flow Rate FiO2 07/11/17 04:00 77 07/11/17 04:00 98.0 80 20 133/81 100 Room Air 07/11/17 00:00 75 07/11/17 00:00 98.6 80 20 125/83 97 Room Air 07/10/17 20:00 98.3 71 20 119/64 99 Room Air 07/10/17 20:00 77 07/10/17 16:00 97.2 69 18 117/70 99 Room Air 07/10/17 16:00 75 07/10/17 12:00 97.7 74 18 113/66 99 Room Air 07/10/17 12:00 76 07/10/17 08:00 97.8 76 18 114/72 99 Room Air 07/10/17 08:00 78 Laboratory Tests 07/10/17 12:40: White Blood Count 5.2, Red Blood Count 2.78L, Hemoglobin 8.5L, Hematocrit 27.4L , Mean Corpuscular Volume 99, Mean Corpuscular Hemoglobin 30.5, Mean Corpuscular Hemoglobin Concent 31.0L, Red Cell Distribution Width 18.8H, Platelet Count 164, Mean Platelet Volume 6.6, Neutrophils (%) (Auto) 52.7, Lymphocytes (%) (Auto) 33.1, Monocytes (%) (Auto) 12.9H, Eosinophils (%) (Auto) 0.3, Basophils (%) (Auto) 1.0 07/11/17 03:15: White Blood Count 4.9, Red Blood Count 2.62L, Hemoglobin 8.2L, Hematocrit 25.9L , Mean Corpuscular Volume 99, Mean Corpuscular Hemoglobin 31.2H, Mean Corpuscular Hemoglobin Concent 31.5L, Red Cell Distribution Width 18.8H, Platelet Count 157, Mean Platelet Volume 5.8L, Neutrophils (%) (Auto) 55.0, Lymphocytes (%) (Auto) 29.8, Monocytes (%) (Auto) 14.3H, Eosinophils (%) (Auto) 0.4, Basophils (%) (Auto) 0.5, Sodium Level 142, Potassium Level 4.8, Chloride Level 113H, Carbon Dioxide Level 21, Anion Gap 8, Blood Urea Nitrogen 79H, Creatinine 1.7H, Estimat Glomerular Filtration Rate , Glucose Level 117H, Calcium Level 8.7, Phosphorus Level 3.0, Magnesium Level 2.0, Total Bilirubin 0.9, Aspartate Amino Transf (AST/SGOT) 20, Alanine Aminotransferase (ALT/SGPT) 30, Alkaline Phosphatase 97, C-Reactive Protein, Quantitative < 0.4, Total Protein 6.4, Albumin 3.0L, Globulin 3.4, Albumin/Globulin Ratio 0.9L, Renin [ Pending] Height (Feet): 5 Height (Inches): 8.00 Weight (Pounds): 163 Paddy Hirsch MD Jul 11, 2017 07:58
--- NOTE | 2017-07-11 08:00 | Consultation ---
DATE OF CONSULTATION: 07/10/2017 NOTE: POOR AUDIO QUALITY HEMATOLOGY/ONCOLOGY CONSULTATION CONSULTING PHYSICIAN: Lucio Roger M.D. REQUESTING PHYSICIAN: Paddy Hirsch M.D. REASON OF CONSULTATION: Evaluation of anemia, ferritin of 45, TIBC of 328, percent saturation is . IDENTIFICATION DATA: Dear Dr. Hirsch: The patient is a pleasant 86-year-old male I have seen in the past, history of status post CVA, history of CABG, cardiac arrhythmia, status post pacemaker placement, at this time presents with altered mental status, loss of consciousness. He has been brought to [facility], primary physician the past two to three weeks. He had recent recollection, but does not have much recollection of what happened. At this time, has been seen by Cardiology team, Dr. Johnson, for presyncopal episode. Blood pressure has been below 100, is the mainstay of therapy. Has also been seen by Nephrology Service as well as GI Service to rule out a gastrointestinal bleed. Again, Hematology Service consulted to evaluate the patient's anemia. He has had a history of colonoscopy in the past, 5 years, but unable to recall the time or the date of the exam. MEDICATIONS: Aspirin and tamsulosin. ALLERGIES: No known drug allergies. REVIEW OF SYSTEMS: Otherwise negative except as noted in history of present illness. PHYSICAL EXAMINATION: GENERAL: No distress. VITAL SIGNS: Reviewed. PULMONARY: Decreased breath sounds. CARDIOVASCULAR: Regular rate. No S3 or S4. ABDOMEN: Soft, nontender, and nondistended. EXTREMITIES: Has 1+ edema. LABORATORY DATA: Troponin 0.482. WBC 4.8, hemoglobin 7.2, hematocrit 22.5, and platelet count 165,000. Creatinine reviewed. Uric acid 6.5, phosphorus 3.7, magnesium 2.1, total bilirubin 0.8. AST is 19 and ALT 29. ASSESSMENT AND RECOMMENDATIONS: 1. Anemia secondary to iron deficiency. Begin the patient on Venofer for 5 days. 2. gastrointestinal bleed. Potentially the patient may need GI procedure, however, this is pending cardiac clearance. 3. Syncopal/presyncopal episode due to hypotension. 4. Acute kidney injury, being seen by Nephrology Service, likely prerenal. 5. . 6. Diabetes mellitus, borderline. 7. Atrial fibrillation is not on anticoagulation. Aspirin does not work to prevent thromboembolic events, therefore the patient is to begin Eliquis at this time twice daily. I appreciate the consultation. Lucio Roger M.D. DR: Vesna JOB#: [id number] CC:
[2017-07-11 08:20] VITALS: BP 126/69
[2017-07-11] MEDS: Docusate 100mg cap ORAL SCH ×2 (09:00→13:00)
[2017-07-11] MEDS: Aspirin Baby 81mg ORAL SCH (09:41)
[2017-07-11] MEDS: Eliquis 2.5mg tablet ORAL SCH (09:43)
--- NOTE | 2017-07-11 11:26 | Nephrology Progress Note ---
Assessment/Plan Problem List: (1) ARF (acute renal failure) Assessment: resolving (2) Anemia Assessment: low Iron (3) Hypotension Assessment Renal failure- Pre renal picture- ? underlying CKD Cr lower 1.7 Sever Anemia: GI bleed, ?CKD transfused elevated A1c : DM elevated Troponin: CAD Plan plan: transfused Iron panel show low iron stool OB U na hydrate slowly monitor renal parameters ? Dc planning Subjective ROS Limited/Unobtainable: No Constitutional: Reports: weakness Objective Objective Last 24 Hour Vital Signs Date Time Temp Pulse Resp B/P (MAP) Pulse Ox O2 Delivery O2 Flow Rate FiO2 07/11/17 08:20 98.1 72 20 126/69 98 Room Air 07/11/17 04:00 77 07/11/17 04:00 98.0 80 20 133/81 100 Room Air 07/11/17 00:00 75 07/11/17 00:00 98.6 80 20 125/83 97 Room Air 07/10/17 20:00 98.3 71 20 119/64 99 Room Air 07/10/17 20:00 77 07/10/17 16:00 97.2 69 18 117/70 99 Room Air 07/10/17 16:00 75 07/10/17 12:00 97.7 74 18 113/66 99 Room Air 07/10/17 12:00 76 Intake and Output 07/11/17 07/12/17 19:00 07:00 Intake Total 240 ml Output Total 240 ml Balance 0 ml Intake Oral 240 ml Output Urine Total 240 ml # Voids 1 Laboratory Tests 07/10/17 12:40: White Blood Count 5.2, Red Blood Count 2.78L, Hemoglobin 8.5L, Hematocrit 27.4L , Mean Corpuscular Volume 99, Mean Corpuscular Hemoglobin 30.5, Mean Corpuscular Hemoglobin Concent 31.0L, Red Cell Distribution Width 18.8H, Platelet Count 164, Mean Platelet Volume 6.6, Neutrophils (%) (Auto) 52.7, Lymphocytes (%) (Auto) 33.1, Monocytes (%) (Auto) 12.9H, Eosinophils (%) (Auto) 0.3, Basophils (%) (Auto) 1.0 07/11/17 03:15: White Blood Count 4.9, Red Blood Count 2.62L, Hemoglobin 8.2L, Hematocrit 25.9L , Mean Corpuscular Volume 99, Mean Corpuscular Hemoglobin 31.2H, Mean Corpuscular Hemoglobin Concent 31.5L, Red Cell Distribution Width 18.8H, Platelet Count 157, Mean Platelet Volume 5.8L, Neutrophils (%) (Auto) 55.0, Lymphocytes (%) (Auto) 29.8, Monocytes (%) (Auto) 14.3H, Eosinophils (%) (Auto) 0.4, Basophils (%) (Auto) 0.5, Sodium Level 142, Potassium Level 4.8, Chloride Level 113H, Carbon Dioxide Level 21, Anion Gap 8, Blood Urea Nitrogen 79H, Creatinine 1.7H, Estimat Glomerular Filtration Rate , Glucose Level 117H, Calcium Level 8.7, Phosphorus Level 3.0, Magnesium Level 2.0, Total Bilirubin 0.9, Aspartate Amino Transf (AST/SGOT) 20, Alanine Aminotransferase (ALT/SGPT) 30, Alkaline Phosphatase 97, C-Reactive Protein, Quantitative < 0.4, Total Protein 6.4, Albumin 3.0L, Globulin 3.4, Albumin/Globulin Ratio 0.9L, Renin [ Pending] Height (Feet): 5 Height (Inches): 8.00 Weight (Pounds): 163 General Appearance: no apparent distress Cardiovascular: normal rate Respiratory/Chest: decreased breath sounds Abdomen: soft Objective PE not changed ELANA RHOADES Jul 11, 2017 11:26
[2017-07-11 12:00] VITALS: BP 111/60
[2017-07-11] MEDS ORDERED: Iron Sucrose 200 MG in NS 50 ML IV ONE (13:00)
--- NOTE | 2017-07-11 14:08 | GI Progress Note ---
Assessment/Plan Problems: (1) Anemia ICD Codes: D64.9 - Anemia, unspecified SNOMED: 584610993 Qualifiers: Qualified Codes: D64.9 - Anemia, unspecified (2) Syncope ICD Codes: R55 - Syncope and collapse SNOMED: 319249943 Qualifiers: Qualified Codes: R55 - Syncope and collapse Status: stable Status Narrative Discussed with Dr. Mayer. Assessment/Plan pt states he is scheduled for a Double Balloon Endoscopy @ [facility] next week with Dr. Velázquez. defer GI procedures, patient will require cardiac clearance given elevated troponin. - patient is also on eliquis which must be dc 48-72 hours prior to any GI procedures. fu CT AP monitor H&H, prn transfusions iron deficiency >> venofer OB stool r/o GI bleed bowel regime ppi BID adv diet PT evaluation fu labs The patient was seen and examined at bedside and all new and available data was reviewed in the patients chart. I agree with the above findings, impression and plan. (Patient seen earlier today. Signature stamp does not reflect patient encounter time.). - Vidal Mayer MD Subjective Gastrointestinal/Abdominal: Reports: no symptoms Subjective no active bleeding noted wants to go AMA Objective Last 24 Hour Vital Signs Date Time Temp Pulse Resp B/P (MAP) Pulse Ox O2 Delivery O2 Flow Rate FiO2 07/11/17 12:00 97.9 70 20 111/60 99 Room Air 07/11/17 08:20 98.1 72 20 126/69 98 Room Air 07/11/17 08:07 82 07/11/17 04:00 77 07/11/17 04:00 98.0 80 20 133/81 100 Room Air 07/11/17 00:00 75 07/11/17 00:00 98.6 80 20 125/83 97 Room Air 07/10/17 20:00 98.3 71 20 119/64 99 Room Air 07/10/17 20:00 77 07/10/17 16:00 97.2 69 18 117/70 99 Room Air 07/10/17 16:00 75 Intake and Output 07/11/17 07/12/17 19:00 07:00 Intake Total 240 ml Output Total 240 ml Balance 0 ml Intake Oral 240 ml Output Urine Total 240 ml # Voids 1 Laboratory Tests Test 07/11/17 03:15 White Blood Count 4.9 K/UL (4.8-10.8) Red Blood Count 2.62 M/UL (4.70-6.10) L Hemoglobin 8.2 G/DL (14.2-18.0) L Hematocrit 25.9 % (42.0-52.0) L Mean Corpuscular Volume 99 FL (80-99) Mean Corpuscular Hemoglobin 31.2 PG (27.0-31.0) H Mean Corpuscular Hemoglobin Concent 31.5 G/DL (32.0-36.0) L Red Cell Distribution Width 18.8 % (11.6-14.8) H Platelet Count 157 K/UL (150-450) Mean Platelet Volume 5.8 FL (6.5-10.1) L Neutrophils (%) (Auto) 55.0 % (45.0-75.0) Lymphocytes (%) (Auto) 29.8 % (20.0-45.0) Monocytes (%) (Auto) 14.3 % (1.0-10.0) H Eosinophils (%) (Auto) 0.4 % (0.0-3.0) Basophils (%) (Auto) 0.5 % (0.0-2.0) Sodium Level 142 MMOL/L (136-145) Potassium Level 4.8 MMOL/L (3.5-5.1) Chloride Level 113 MMOL/L (98-107) H Carbon Dioxide Level 21 MMOL/L (21-32) Anion Gap 8 mmol/L (5-15) Blood Urea Nitrogen 79 mg/dL (7-18) H Creatinine 1.7 MG/DL (0.55-1.30) H Estimat Glomerular Filtration Rate mL/min (>60) Glucose Level 117 MG/DL (74-106) H Calcium Level 8.7 MG/DL (8.5-10.1) Phosphorus Level 3.0 MG/DL (2.5-4.9) Magnesium Level 2.0 MG/DL (1.8-2.4) Total Bilirubin 0.9 MG/DL (0.2-1.0) Aspartate Amino Transf (AST/SGOT) 20 U/L (15-37) Alanine Aminotransferase (ALT/SGPT) 30 U/L (12-78) Alkaline Phosphatase 97 U/L (46-116) C-Reactive Protein, Quantitative < 0.4 mg/dL (0.00-0.90) Total Protein 6.4 G/DL (6.4-8.2) Albumin 3.0 G/DL (3.4-5.0) L Globulin 3.4 g/dL Albumin/Globulin Ratio 0.9 (1.0-2.7) L Renin Pending Height (Feet): 5 Height (Inches): 8.00 Weight (Pounds): 163 General Appearance: WD/WN, no apparent distress, alert Cardiovascular: normal rate Respiratory/Chest: normal breath sounds, no respiratory distress Abdominal Exam: normal bowel sounds, non tender, soft Extremities: normal range of motion, non-tender Natasha Darling N.P. Jul 11, 2017 14:08 DEN MAYER Jul 12, 2017 12:47
[2017-07-11 16:00] VITALS: BP 102/55
[2017-07-11] MEDS ORDERED: Tubing IV Secondary IV ONE ×3 (16:44)
[2017-07-11] MEDS ORDERED: NS 500ML ONE ×2 (16:44)
[2017-07-11] MEDS ORDERED: Tubing Blood Filter IV ONE ×2 (16:44)
--- NOTE | 2017-07-11 17:59 | Discharge Summary ---
Discharge Summary Hospital Course Date of Admission Jul 08, 2017 at 22:05 Date of Discharge Jul 11, 2017 at 16:45 Admitting Diagnosis syncope. JACLYN Rowley is a 86 year old male who was admitted on Jul 08, 2017 at 22:05 for Syncope Hospital Course [id number] Discharge Discharge Disposition Patient was discharged to Home (01) Discharge Diagnoses: Tanna Arroyo NP Jul 11, 2017 17:59
--- NOTE | 2017-07-11 20:47 | General Progress Note ---
Assessment/Plan Assessment/Plan ASSESSMENT AND RECOMMENDATIONS: 1. Anemia secondary to iron deficiency. Recommend iron supplementation 2. Syncopal/presyncopal episode due to hypotension. 3. Acute kidney injury, being seen by Nephrology Service, likely prerenal. 5. Diabetes mellitus, borderline. 6. Atrial fibrillation is not on anticoagulation. Recommend eliquis twice daily. Subjective Allergies: Coded Allergies: No Known Allergies (Unverified , 07/08/17) All Systems: reviewed and negative except above Subjective wants to go home Objective Last 24 Hour Vital Signs Date Time Temp Pulse Resp B/P (MAP) Pulse Ox O2 Delivery O2 Flow Rate FiO2 07/11/17 16:06 77 07/11/17 16:00 97.0 73 20 102/55 98 Room Air 07/11/17 12:00 97.9 70 20 111/60 99 Room Air 07/11/17 12:00 73 07/11/17 08:20 98.1 72 20 126/69 98 Room Air 07/11/17 08:07 82 07/11/17 04:00 77 07/11/17 04:00 98.0 80 20 133/81 100 Room Air 07/11/17 00:00 75 07/11/17 00:00 98.6 80 20 125/83 97 Room Air Intake and Output 07/11/17 07/12/17 19:00 07:00 Intake Total 480 ml Output Total 740 ml Balance -260 ml Intake Oral 480 ml Output Urine Total 740 ml # Voids 3 Laboratory Tests 07/11/17 03:15: White Blood Count 4.9, Red Blood Count 2.62L, Hemoglobin 8.2L, Hematocrit 25.9L , Mean Corpuscular Volume 99, Mean Corpuscular Hemoglobin 31.2H, Mean Corpuscular Hemoglobin Concent 31.5L, Red Cell Distribution Width 18.8H, Platelet Count 157, Mean Platelet Volume 5.8L, Neutrophils (%) (Auto) 55.0, Lymphocytes (%) (Auto) 29.8, Monocytes (%) (Auto) 14.3H, Eosinophils (%) (Auto) 0.4, Basophils (%) (Auto) 0.5, Sodium Level 142, Potassium Level 4.8, Chloride Level 113H, Carbon Dioxide Level 21, Anion Gap 8, Blood Urea Nitrogen 79H, Creatinine 1.7H, Estimat Glomerular Filtration Rate , Glucose Level 117H, Calcium Level 8.7, Phosphorus Level 3.0, Magnesium Level 2.0, Total Bilirubin 0.9, Aspartate Amino Transf (AST/SGOT) 20, Alanine Aminotransferase (ALT/SGPT) 30, Alkaline Phosphatase 97, C-Reactive Protein, Quantitative < 0.4, Total Protein 6.4, Albumin 3.0L, Globulin 3.4, Albumin/Globulin Ratio 0.9L, Renin [ Pending] 07/11/17 15:45: Urine Random Sodium 56 Height (Feet): 5 Height (Inches): 8.00 Weight (Pounds): 163 General Appearance: no apparent distress EENT: normal ENT inspection Neck: normal alignment Cardiovascular: normal peripheral pulses Neurologic: instructional support technician II-XII grossly normal Skin: normal pigmentation Lucio Roger Jul 11, 2017 20:47
--- NOTE | 2017-07-12 02:46 | Discharge Summary 2 SIG ---
DATE OF ADMISSION: 07/08/2017 DATE OF DISCHARGE: 07/11/2017 CONSULTANTS: 1. Antonio Arias M.D. 2. Enrique Mayer M.D. 3. Lucio Roger M.D. BRIEF HOSPITAL COURSE: The patient is an 86-year-old white male, who presented to ED with loss of consciousness. The patient has reported that he has been following his [facility] primary physician for the same reason at least two or times times within the last four weeks. He reported that he does not have any recollection of the incident today. He was found on the driveway reportedly by a family member who called 911 and the patient was eventually transferred to ED. He has a history of CAD with pacemaker and on evaluation at ED, EKG was paced rhythm. Chest x-ray showed no consolidation, no pneumothorax, and no effusion, however, with cardiomegaly. Blood work showed anemia, hemoglobin of 7.4 and hematocrit 24. Creatinine was elevated to 3.0, potassium was 5.5, and BUN 38. Urinalysis was negative. He was admitted for acute encephalopathy and anemia. He received two units packed RBC blood transfusion. Anemia work-up done. The patient has iron deficiency and was given Venofer and was placed on proton pump inhibitors b.i.d. He had a ferritin level of 45 and TIBC of 328. The patient has atrial fibrillation, however, not on anticoagulation. He was started on Eliquis. He had a head CT done that showed no acute intracranial bleed, mass effect, or edema with evidence of chronic small vessel disease involving white matter tracts. Kidney function was elevated. The patient has renal failure, prerenal in picture with possible underlying CKD. Urine sodium was 56. Full treatment was not carried out as the patient signed out against medical advice. FINAL DIAGNOSES: 1. Acute encephalopathy. 2. Acute on chronic anemia, age indeterminate. 3. Atrial fibrillation. 4. [id number] myocardial infarction. 5. Renal failure, age indeterminate. 6. Internal carotid artery stenosis, moderate. 7. Hyperkalemia. 8. Noncompliance as the patient signed out against medical advice. Paddy Hirsch M.D. I have been assigned to dictate discharge summary on this account and I was not involved in the patient's management. Tanna Arroyo N.P. DR: ARMAAN JOB#: [id number] CC: [email or web address]
--- NOTE | 2017-07-12 08:44 | Diagnostic Imaging Report ---
Indication: Abdominal pain Technique: Spiral acquisitions obtained through the abdomen and pelvis. Patient given oral contrast. No IV contrast utilized, per referring physician request. Multiplanar reconstructions were generated. Total dose length product 638.21 mGycm. CTDIvol(s) 11.63 mGy. Dose reduction achieved using automated exposure control Comparison: 07/09/2017 ultrasound Findings: There is colonic diverticulosis. No evidence of diverticulitis. There is evidence of prior left colectomy, with ileocolic anastomosis at the level of the distal descending colon. There is mild dilatation of the small bowel adjacent to the anastomosis, but contrast is seen throughout the entirety of the small bowel, indicating absence of obstructive pathology. No small bowel wall thickening. No free or loculated peritoneal air or fluid. Portions of the stomach appears thick-walled, but this is only in the areas of under distention and probably an artifact of such. The duodenum is unremarkable. The distal esophagus is unremarkable. 2 metallic objects projecting in the left lower quadrant, appear to be between small bowel loops, extraluminal, possibly related to prior surgery. Lack of IV contrast limits assessment of the solid organs. The gallbladder contains one or more gallstones. The liver demonstrates a few granulomatous calcifications. The pancreas is unremarkable. The spleen demonstrates numerous punctate calcifications. The kidneys demonstrate cysts bilaterally. There are also bilateral hypoattenuating renal lesions which are too small to characterize but most likely proteinaceous cysts. The lesion seen on recent ultrasound demonstrates fluid attenuation and is presumably a cyst, although is not well characterized in the absence of IV contrast. There is also considerable bilateral perinephric fat stranding. The abdominal aorta is mildly ectatic but not aneurysmal. No mesenteric or retroperitoneal mass or adenopathy. No pelvic mass or adenopathy. The bladder is distended and demonstrates a possible large posterior diverticulum. The prostate is enlarged with calcifications, measures 4.8 x 4.7 cm. The included lung bases demonstrate a small right pleural effusion. There is suggestion of hyperinflation and generalized interstitial septal thickening. There is a calcified granuloma with surrounding scarring at the base of the right lower lobe. There is extensive calcification of nodes within the mediastinum and right pulmonary hilum. There is extensive coronary arterial calcification. The heart is mildly enlarged. There is a pacemaker. 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 There are median sternotomy sutures. The bones demonstrate degenerative spondylosis. Impression: No acute abnormality Left renal lesion is bright on renal ultrasound appears to be fluid attenuation and therefore most likely a cyst. However, in the absence of IV contrast, a significant solid component and therefore neoplasm cannot be completely excluded. MRI or short interval follow-up sonography should be considered for further evaluation Other bilateral renal cysts. Other bilateral renal lesions are mostly hyperattenuating, too small to characterize, likely proteinaceous cysts. No further follow-up necessary Evidence of right colectomy with ileocolic anastomosis at the level of the distal descending colon Colonic diverticulosis. No evidence of diverticulitis Cholelithiasis Evidence of old granulomatous disease within the right lung, right pulmonary hilum, mediastinum, liver and spleen Possible large posterior bladder diverticulum Prostatomegaly Right pleural effusion Generalized pulmonary interstitial septal thickening and hyperinflation Cardiomegaly Pacemaker, aortic valve prosthesis, no evidence of prior median sternotomy Degenerative spondylosis The CT scanner at [facility] is accredited by the [employer] and the scans are performed using protocols designed to limit radiation exposure to as low as reasonably achievable to attain images of sufficient resolution adequate for diagnostic evaluation.
--- NOTE | 2017-07-12 15:15 | Cardiology Report ---
APPROVED REPORT EXAM: Two-dimensional and M-mode echocardiogram with Doppler and color Doppler. INDICATION Syncope M-Mode DIMENSIONS LVDd5.0 (3.5-5.6cm) PWd1.2 (0.7-1.1cm) IVSs1.7 cm LVDs3.8 (2.5-4.0cm) PWs1.4 cm Technically difficult study due to poor acoustic windows. Study quality precludes accurate assessment of regional wall motion. Mild left ventricular enlargement by 2D. Global left ventricular hypokinesis, apical akinesis. Left ventricular ejection fraction estimated to be 35%. Mild left ventricular hypertrophy. Possible large pleural effusion. Severe left atrial enlargement. Mild right atrial and right ventricular enlargement, consistent with volume and pressure overload. Aortic valve calcification with decreased cusp excursion c/w severe aortic stenosis. Moderately thickened mitral valve leaflets with normal excursion. Heavy mitral annulus and aortic root calcification. Pulmonic valve not well visualized. Normal tricuspid valve structure. IVC dilated at 3.3 cm with partial physiologic collapse, estimated RAP is 15 mmHg. Pacemaker wire present in the right side chambers. A color flow and spectral Doppler study was performed and revealed: Mild aortic regurgitation. Peak aortic valve gradient of 54 mmHg and a mean of 33 mmHg. Aortic valve area 1.3 cm2 calculated by continuity equation. Mild mitral regurgitation. Mitral inflow indicates restrictive pattern, implying severely elevated left atrial pressure (Grade III ). Severe tricuspid regurgitation. Tricuspid systolic velocities suggests peak right ventricular systolic pressure of 82 mmHg, consistent with severe pulmonary hypertension. No pulmonic regurgitation present.
[2017-07-14 08:20] LABS: ALDOSTERONE 5.8 ng/dL (0.0-30.0)
== END 2017-07-11 16:45 | disposition left against medical advice (07) | DRG 70 ==
LOC: EDUNIT# 20:41 → EDBD 20:41 → EMR 21:30 → 2E 22:05 → EDBEDREQ 22:26 → ENRESERV 22:29 → 2E 07-09 07:05 → 2W 07-09 21:55
PROC: 30233N1 Transfusion of Nonautologous Red Blood Cells into Peripheral Vein, Percutaneous Approach (ICD-10-PCS; principal; 2017-07-09)
DX: G93.40 Encephalopathy, unspecified (principal); I21.4 Non-ST elevation (NSTEMI) myocardial infarction; N17.9 Acute kidney failure, unspecified; E87.5 Hyperkalemia; E11.9 Type 2 diabetes mellitus without complications; D50.9 Iron deficiency anemia, unspecified; I48.91 Unspecified atrial fibrillation; I65.29 Occlusion and stenosis of unspecified carotid artery; N18.9 Chronic kidney disease, unspecified; I25.10 Atherosclerotic heart disease of native coronary artery without angina pectoris; Z91.19 Patient's noncompliance with other medical treatment and regimen; Z95.0 Presence of cardiac pacemaker; Z86.73 Personal history of transient ischemic attack (TIA), and cerebral infarction without residual deficits; Z95.1 Presence of aortocoronary bypass graft; Z23 Encounter for immunization
CPT/HCPCS: 36415; 70450; 71010; 74176; 76700; 80053; 80061; 81003; 82088; 82270; 82550; 82553; 82607; 82728; 82746; 82977; 83036; 83540; 83550; 83735; 83880; 84100; 84244; 84300; 84484; 84550; 85007; 85025; 86140; 86850; 86900; 86901; 86920; 90630; 93005; 93306; 93880; 99285